=== PATIENT | female | born 1965 | race Caucasian/White ===

== ENCOUNTER 2016-03-18 09:43 | Day surgery (SDC) | payer OTHER ==
[2016-03-18] MEDS ORDERED: LIDOCAINE 1% 5 ML SDV ONE (10:17)
[2016-03-18] MEDS ORDERED: LIDOCAINE 1% 2 ML INJ ID PRN (10:27)
[2016-03-18] MEDS ORDERED: NS 1,000 ML IV SCH (10:30)
[2016-03-18] MEDS ORDERED: MIDAZOLAM 2 MG/2 ML VIAL ONE (11:09)
[2016-03-18] MEDS ORDERED: fentaNYL 100 MCG/2 ML INJ ONE (11:10)
--- NOTE | 2016-03-18 13:19 | GPN ---
[f rep st] PROCEDURE NOTE DATE OF PROCEDURE: 03/18/2016 PROCEDURES: Flexible sigmoidoscopy with injection, biopsy. Endoscopic ultrasound. INDICATION: The patient is a 50-year-old female who presents for evaluation of a rectal cancer. 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 On pathology, at least intramucosal adenocarcinoma was diagnosed. She presents for further evaluation. CONSENT: Risks, benefits, and alternatives of the procedure were discussed in great detail with the patient. The risk of infection, bleeding, perforation, and sedation were discussed. All questions answered. Informed consent was obtained. MEDICATIONS: Fentanyl 100 mcg IV push, Versed 3 mg IV push. ESTIMATED BLOOD LOSS: Insignificant. FLEXIBLE SIGMOIDOSCOPY EXAM: A rectal exam was done and palpable mass was felt. The scope was introduced into the rectum and advanced to the sigmoid colon. At approximately 7 cm from the anal verge, a clip was seen at the prior polypectomy site with a tattoo leonel at the site. Biopsies were taken at the polypectomy site. 3cc of Geetha Ink was injected on the opposite wall of the polypectomy to ensure visualization. A 2 mm rectal polyp was seen and removed with biopsy forceps. ENDOSCOPIC ULTRASOUND EXAMINATION: The Olympus radial echoendoscope was introduced into the rectum and advanced to the sigmoid colon. No suspicious perisigmoid or perirectal nodes were appreciated. The polypectomy site was carefully examined. There did appear to be hypoechoic thickening with penetration into the muscularis propria layer. I am unsure whether this is due to the tumor versus artifact from the prior polypectomy. IMPRESSION: 1. Colonic polyps. 2. Rectal lesion- EUS stage uT3?NoMx. Suspect findings of penetration are secondary to artifact from prior polypectomy. RECOMMENDATIONS: 1. Follow up on biopsy results. 2. Follow up with Oncology. /[id number]/MODL MTDD
== END 2016-03-18 13:05 | disposition home or self-care (01) ==
LOC: FSGY 09:43
PROVIDERS: ATTEND Internal Medicine Gastroenterology
PROC: 0DBP8ZX Excision of Rectum, Via Natural or Artificial Opening Endoscopic, Diagnostic (ICD-10-PCS; principal; 2016-03-18 11:30)
PROC: BD47ZZZ Ultrasonography of Gastrointestinal Tract (ICD-10-PCS; principal; 2016-03-18 11:30)
PROC: 3E0H8KZ Introduction of Other Diagnostic Substance into Lower GI, Via Natural or Artificial Opening Endoscopic (ICD-10-PCS; principal; 2016-03-18 11:30)
DX: C20 Malignant neoplasm of rectum (principal); K62.1 Rectal polyp
CPT/HCPCS: J2250; J3010